=== PATIENT | male | born 1970 | race Caucasian/White ===

== ENCOUNTER 2024-09-17 07:51 | Day surgery (SDC) | payer OTHER, SELFPAY ==
[2024-09-10 12:34] VITALS: BMI 39.8
[2024-09-10 13:31] LABS: INR 1.22; PT 15.5 Sec (11.4-14.6)
[2024-09-10 13:34] LABS: ALT (SGPT) 27 U/L (0-50); AST (SGOT) 19 U/L (17-59); Albumin 4.3 g/dl (3.5-5.0); Alkaline Phosphatase 98 U/L (38-126); Blood Urea Nitrogen 34 mg/dl (9-20); Calcium 9.5 mg/dl (8.4-10.2); Carbon Dioxide 25 mmol/L (22-30); Chloride 101 mmol/L (98-107); Estimated Creatinine Clearance 113 ml/min; Glucose 233 mg/dl (70-99); Magnesium 2.1 mg/dl (1.6-2.3); Potassium 4.3 mmol/L (3.5-5.1); Sodium 140 mmol/L (135-145); Total Bilirubin 0.2 mg/dl (0.2-1.3); Total Protein 6.8 g/dl (6.3-8.2); eGFR > 60.00
[2024-09-10 13:56] LABS: % Basophils 0.5 % (0-2); % Eosinophils 3.7 % (0-6); % Immature Granulocytes 0.5 % (0-0.5); % Lymphocytes 26.6 % (20.5-51.1); % Monocytes 9.9 % (1.7-9.3); % Neutrophils 58.8 % (42.2-75.2); Absolute Basophils 0.1 10^3/uL (0-0.2); Absolute Eosinophils 0.4 10^3/uL (0-0.7); Absolute Immature Granulocytes 0.1 10^3/uL (0-0.05); Absolute Monocytes 1.1 10^3/uL (0.1-0.6); Absolute Neutrophils 6.7 10^3/uL (1.4-6.5); Hematocrit 44.7 % (39.0-52.0); Hemoglobin 14.7 g/dL (13.0-18.0); Mean Corp Hgb Conc. 32.9 g/dL (33.0-37.0); Mean Corpuscular Hgb 28.9 pg (27.0-31.0); Mean Corpuscular Volume 87.8 fL (80.0-94.0); Mean Platelet Volume 10.7 fL (7.4-10.4); Nucleated Red Blood Cells % 0 % (-); Platelet Count 237 10^3/uL (130-400); Red Blood Cell Count 5.09 10^6/uL (4.70-6.10); Red Cell Dist. Width 13.3 % (11.5-14.5); White Blood Cell Count 11.4 10^3/uL (4.8-10.8)
[2024-09-17] VITALS (10 sets, daily range): BP systolic 109–142; BP diastolic 75–93; BMI 35.6
[2024-09-17 08:43] LABS: Glucose - Point of Care 257 mg/dl (70-99)
--- NOTE | 2024-09-17 12:47 | ITS.CL.PN ---
Frame Aligner - Procedure Note
Procedure
Procedure Note:
Electrophysiology procedure report
Date: September 17, 2024
History: Patient with a tachycardia induced cardiomyopathy and persistent atrial fibrillation. He stopped his Eliquis preoperatively approximately 4 to 5 days ago instead of his Jardiance.
Procedure note:
After informed consent during which we did discuss the possibility that he may have left atrial appendage thrombus, he was sedated with general anesthesia by the anesthesiology service. Under direct ultrasound guidance 8 [place] sheath in the right
femoral vein and 7 and 10 [place] sheath in the left femoral vein to deliver a decapolar cath of the right atrium and intracardiac ultrasound to the right atrium, right ventricle and pulmonary artery. Utilizing intracardiac ultrasound image from the
pulmonary artery direct visualization of the left atrial appendage demonstrated thrombus in the distal tip of the appendage which was seen and recorded in multiple views. As such we did not proceed with transseptal puncture and sheaths and
catheters were removed. I did place the decapolar catheter into the right atrium to record rhythm which demonstrated atrial fibrillation with areas of organization although the defining rhythm of the atria was atrial fibrillation. [place] vascular
closure was placed to each femoral vein and the patient was brought out of anesthesia without complication. Intracardiac ultrasound was placed through the 10 [place] sheath to the right atrium, right ventricle and pulmonary artery. Ejection
fraction was 40 to 45% with global hypokinesis without focal regional wall motion abnormality. As above direct views of left atrial appendage from the pulmonary artery demonstrated left atrial appendage thrombus and as such we did not proceed with
left atrial access or ablation. Sheaths and catheters were removed and we will repeat ALFONSO in 6 weeks. 3D mapping was utilized to image the decapolar catheter in the right atrium as well as to make a shell of the right atrium and record the atrial
rhythm.
Plan:
Will resume oral anticoagulation this afternoon. We will repeat ALFONSO in 6 weeks to assess his thrombus and if he is without left atrial appendage thrombus we can proceed to his ablation. Obviously given his tachycardia and his cardiomyopathy we
went to expedite his procedure but we need to make sure that the left atrial appendage thrombus has resolved. We will have to have a visit with the patient either by telehealth or in person 7 to 10 days prior to procedure date to make sure he is
properly stopping his medications as instructed.
[2024-09-17 13:01] LABS: Glucose - Point of Care 232 mg/dl (70-99)
[2024-09-17] MEDS: ELIQUIS 5 MG PO (16:49)
== END 2024-09-17 17:05 | disposition home or self-care (01) ==
LOC: CATH 07:51
PROVIDERS: ATTENDING PHYSICIAN Internal Medicine Cardiovascular Disease; FAMILY PHYSICIAN Family Medicine Adult Medicine; OTHER PHYSICIAN Internal Medicine Cardiovascular Disease
DX: I48.19 Other persistent atrial fibrillation (principal); R00.2 Palpitations; R06.02 Shortness of breath; I11.0 Hypertensive heart disease with heart failure; I42.8 Other cardiomyopathies; I95.9 Hypotension, unspecified; Z79.899 Other long term (current) drug therapy; E78.5 Hyperlipidemia, unspecified; Z87.891 Personal history of nicotine dependence; E11.9 Type 2 diabetes mellitus without complications; Z79.4 Long term (current) use of insulin; I50.9 Heart failure, unspecified; E66.01 Morbid (severe) obesity due to excess calories; Z68.39 Body mass index [BMI] 39.0-39.9, adult; Z79.84 Long term (current) use of oral hypoglycemic drugs
CPT/HCPCS: 93602; C1732; C1894; C1730; C1769; 36415; 75572; 80053; 82962; 83735; 85025; 85610; 86850; 86900; 86901; 93005; C1760; Q9967

== ENCOUNTER 2024-10-30 06:56 | Day surgery (SDC) | payer OTHER, SELFPAY ==
[2024-10-30 07:54] LABS: Glucose - Point of Care 447 mg/dl (70-99)
[2024-10-30 08:17] LABS: Glucose 405 mg/dl (70-99)
== END 2024-10-30 09:50 | disposition home or self-care (01) ==
LOC: CATH 06:56
PROVIDERS: ATTENDING PHYSICIAN Internal Medicine Cardiovascular Disease; FAMILY PHYSICIAN Family Medicine Adult Medicine; OTHER PHYSICIAN Internal Medicine Cardiovascular Disease
DX: I51.3 Intracardiac thrombosis, not elsewhere classified (principal); I48.19 Other persistent atrial fibrillation; I11.0 Hypertensive heart disease with heart failure; I50.9 Heart failure, unspecified; E78.5 Hyperlipidemia, unspecified; E11.9 Type 2 diabetes mellitus without complications; E66.9 Obesity, unspecified; Z68.39 Body mass index [BMI] 39.0-39.9, adult; Z87.891 Personal history of nicotine dependence; Z79.84 Long term (current) use of oral hypoglycemic drugs; Z79.01 Long term (current) use of anticoagulants
CPT/HCPCS: 93312; 93320; 93325; 82947; 82962

== ENCOUNTER 2024-12-30 06:02 | Day surgery (SDC) | payer OTHER, SELFPAY ==
--- NOTE | 2024-12-29 12:42 | HP.FOC2 ---
Documented by User: [email or web address] Grey 12/29/24 12:51
Focused History & Physical
Chief Complaint
HPI:
Chief Complaint: Symptomatic Persistent Atrial fibrillation
HPI / Indication for Planned Procedure: 54 yo WM patient of Dr. Irizarry with symptomatic Afib h/o NELDA thrombus during aborted ablation 09/24, f/u ALFONSO 10/25 with no NELDA clot. He presents today for ablation
Relevant Past Medical History: Diabetes, Hypertension and Other (Afib, Hyperlipidemia, NICMP, NELDA thombus)
Relevant Social History: Tobacco Use
Relevant Family History: Negative
Relevant Past Surgical History: Positive for (Cataract, shoulder surgery)
Review of Systems
Review of Pertinent Systems: All Systems Negative Except for the Following Positives (fatigue and SANCHEZ)
Medication
See Medication form for detailed medications: Yes
Medication List (including Herbals & OTC):
amiodarone 200 mg tablet 200 mg PO DAILY 09/07/24
atorvastatin 40 mg tablet 40 mg PO DAILY 09/07/24
empagliflozin 10 mg tablet (Jardiance) 10 mg PO DAILY 09/07/24
furosemide 40 mg tablet 40 mg PO DAILY 09/07/24
glimepiride 4 mg tablet 4 mg PO DAILY 09/07/24
linagliptin 5 mg tablet (Tradjenta) 5 mg PO DAILY 09/07/24
lisinopril 5 mg tablet 5 mg PO DAILY 09/07/24
metformin 500 mg tablet 500 mg PO DAILY 09/07/24
spironolactone 25 mg tablet 25 mg PO DAILY 09/07/24
apixaban 5 mg tablet (Eliquis) 5 mg PO BID 09/17/24
Medications Reviewed: Yes
Allergies and Reactions
Patient has Allergies: No
Noted Allergies and Reactions:
Allergy/AdvReac Type Severity Reaction Status Date / Time
No Known Allergies Allergy Unverified 09/17/24 08:07
Diagnosis / Assessment
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
Plan / Procedure
54 yo WM symptomatic Afib h/o NELDA thrombus during aborted ablation 09/24, f/u ALFONSO 10/25 with no NELDA clot. He presents today for ablation.
Resume OAC 6 hours post procedure, continue amiodarone and metoprolol.
Anesthesia/Sedation to be done by Anesthesia Provider: Yes

Documented by User: TASHA Ramirez 12/30/24 07:15
Focused History & Physical
Medication
Medication List (including Herbals & OTC):
Home Medications
�Medication �Instructions �Recorded
amiodarone 200 mg tablet 200 mg PO DAILY 09/07/24
atorvastatin 40 mg tablet 40 mg PO DAILY 09/07/24
empagliflozin 10 mg tablet 10 mg PO DAILY 09/07/24
(Jardiance)
furosemide 40 mg tablet 40 mg PO DAILY 09/07/24
glimepiride 4 mg tablet 4 mg PO DAILY 09/07/24
linagliptin 5 mg tablet (Tradjenta) 5 mg PO DAILY 09/07/24
lisinopril 5 mg tablet 5 mg PO DAILY 09/07/24
metformin 500 mg tablet 500 mg PO DAILY 09/07/24
spironolactone 25 mg tablet 25 mg PO DAILY 09/07/24
apixaban 5 mg tablet (Eliquis) 5 mg PO BID 09/17/24
Allergies
Allergy/AdvReac Type Severity Reaction Status Date / Time
No Known Allergies Allergy Unverified 09/17/24 08:07
Pertinent Physical Exam
All Other Systems: Negative
Head/Neck: Normal
Lungs: Normal
Heart: Other (irreg irreg S1 S2 no murmurs)
Abdomen: Normal
Extremities: Normal
Neurological: Normal
[2024-12-30] VITALS (12 sets, daily range): BP systolic 109–132; BP diastolic 75–108; BMI 35.2
[2024-12-30 06:46] LABS: Glucose - Point of Care 229 mg/dl (70-99)
[2024-12-30 06:47] LABS: Hematocrit 49.8 % (39.0-52.0); Hemoglobin 16.4 g/dL (13.0-18.0); Mean Corp Hgb Conc. 32.9 g/dL (33.0-37.0); Mean Corpuscular Hgb 29.8 pg (27.0-31.0); Mean Corpuscular Volume 90.5 fL (80.0-94.0); Mean Platelet Volume 10.1 fL (7.4-10.4); Platelet Count 233 10^3/uL (130-400); Red Cell Dist. Width 13.2 % (11.5-14.5); White Blood Cell Count 11.9 10^3/uL (4.8-10.8)
[2024-12-30 07:02] LABS: ALT (SGPT) 33 U/L (0-50); AST (SGOT) 23 U/L (17-59); Albumin 4.7 g/dl (3.5-5.0); Alkaline Phosphatase 121 U/L (38-126); Blood Urea Nitrogen 29 mg/dl (9-20); Calcium 9.9 mg/dl (8.4-10.2); Carbon Dioxide 24 mmol/L (22-30); Chloride 99 mmol/L (98-107); Estimated Creatinine Clearance > 125 ml/min; Glucose 222 mg/dl (70-99); Potassium 4.6 mmol/L (3.5-5.1); Sodium 137 mmol/L (135-145); Total Bilirubin 0.4 mg/dl (0.2-1.3); Total Protein 7.6 g/dl (6.3-8.2); eGFR > 60.00
[2024-12-30 07:21] LABS: INR 1.19; PT 15.4 Sec (11.4-14.6)
[2024-12-30] MEDS: NOVOLOG vial 2 UNITS SC (07:27)
[2024-12-30 08:45] LABS: ACT-LR - POC 248 Seconds (116-155)
[2024-12-30 09:09] LABS: Glucose - Point of Care 187 mg/dl (70-99)
--- NOTE | 2024-12-30 09:19 | ITS.CL.ABL ---
Exhibition Specialist - Ablation
Ablation
Procedure Report:
ELECTROPHYSIOLOGY ABLATION STUDY
DATE:: 12/30/24 REFERRING: Dr. Burt Irizarry
INDICATION: Persistent supraventricular tachycardia in the form of atrial fibrillation. History of tachycardia induced CM
HISTORY: See H and P.
ANTIARRHYTHMIC DRUG: amiodarone
PRE-PROCEDURE ALFONSO: No thrombus at 10/30/24 ALFONSO and today on ICE prior to transseptal
PRESENTING RHYTHM: AF
'TIME-OUT': called and confirmed.
SEDATION/ANESTHESIA: provided via the anesthesia department using general anesthesia (LMA).
INTRAVENOUS/ARTERIAL ACCESS:
Right femoral venous - 8Fr
Left femoral venous - 8 Fr, 6 Fr
Ultrasound guidance for bilateral femoral vein access was utilized by me to obtain access with demonstration of normal anatomy
CHADS-VASC Score:
HAS-Bled Score
PROCEDURE:
1. A decapolar CS catheter was placed within the CS for mapping and pacing. This was also used as the reference catheter for the 3-D map.
2. The intracardiac ultrasound catheter was positioned in the RA to identify the FO for targeting of transseptal puncture, assist in identification of the pulmonary vein ostia, monitoring pre and post ablation pulmonary vein flow velocities,
monitoring for 'bubble' formation during RF application as a sign of thermal injury, and to monitor for pericardial effusion during mapping and ablation procedure. Left atrial size, LV ejection fraction, and pulmonary vein flows were monitored
pre and post ablation procedure. The other valves were inspected and found to be free of significant regurgitation or stenosis.
3. Half of the calculated heparin bolus was administered prior to the first transeptal puncture. Transseptal puncture was performed to diagnose RA and LA pressure so that safety of LA mapping and ablation could be further assessed, and to access
the left atrium and pulmonary veins for mapping and ablation. This entailed advancing an 8 Fr SL-1 sheath with dilator into the superior vena cava and withdrawing both (monitoring intracardiac ultrasound, fluoroscopy and tip pressure) with the tip
oriented toward the atrial septum. The fossa ovalis was engaged (indicated by sudden displacement of the sheath tip as well as tenting of the fossa seen on intracardiac ultrasound). Left atrial access required a pass with the [place] needle
extended. Left atrial catheter position was confirmed by pressure monitoring (RA mean pressure 8 mm Hg and LA mean presure 14 mm Hg), LA saturation ( 99 %), as well as fluoroscopy. The sheath was advanced over the dilator and positioned in the
left atrium. This procedure was repeated for the [place]ilis sheath. The remainder of the calculated heparin bolus was administered and heparin was
infused to maintain ACT at 300 -350 seconds throughout the case.
4. RA pacing was performed via the proximal decapolar poles and LA pacing was performed via the distal decapolr poles.
5. A quadrapolar catheter was first positioned at the His position for His Bundle recording which was tagged via the 3-D Navex sytem, and then passed to the RVA for RV pacing and recording.
6. The multipolar catheter and PFA catheter were placed in each of the LIPV, LSPV, RSPV and the RIPV.
7. Next, a 3-D map was created using Navex. A 3-D reconstructed CT image was compared to the 3-D Navex map to assist in anatomic interpretation, mapping and ablation. The CT image and the NavX image were fused.
8. A total of 62 lesions were given to the PV's and LA posterior wall to the floor. Isolated all 4 PV and LAPW/roof/floor
9. Normal sinus node and AV sultana function.
TOTAL FLOURO TIME: 11 minutes 123 mgy
TOTAL RF DURATION: 0 minutes
REVERSAL OF HEPARIN: 45 mg of protamine, slow IV administration. figure of eight stitch to the RFV and LFV access site
COMPLICATIONS:
None
Intracardiac US shows no pericardial effusion post ablation.
SUMMARY:
Complex left atrial mapping and ablation.
Isolation of PV's and LAPW as above
RECOMMENDATIONS:
1. Ambulate in 4 hrs
2. Resume anticoagulation
3. Discontinue amiodarone
4. Consider same day discharge
Copy to: Dr. Burt IRIZARRY
[2024-12-30 09:42] LABS: Glucose - Point of Care 270 mg/dl (70-99)
[2024-12-30] MEDS: NOVOLOG vial 4 UNITS SC (09:44)
[2024-12-30] MEDS: ANESTHETIC LOZENGE 1 LOZENGE PO (10:00)
[2024-12-30] MEDS: NOVOLOG vial 6 UNITS SC (11:40)
[2024-12-30 11:52] LABS: Glucose - Point of Care 333 mg/dl (70-99)
--- NOTE | 2024-12-30 14:29 | W.PN.UPDATE ---
Update Note
Progress Note Update
54 yo WM s/p PVI (same day). He denies cp, sob, arsen diet, voiding, amb w/o dizziness, EKG SR, R fem c/d/i no HT, soft. He will resume Eliquis tonight at home. Activity restrictions reviewed. He will f/u Dr. Irizarry in 1 mo. He is for d/c home after 2pm.
SUMMARY:
Complex left atrial mapping and ablation.
Isolation of PV's and LAPW as above
RECOMMENDATIONS:
1. Ambulate in 4 hrs
2. Resume anticoagulation
3. Discontinue amiodarone
4. Consider same day discharge
Copy to: Dr. Burt IRIZARRY
== END 2024-12-30 16:13 | disposition home or self-care (01) ==
LOC: CATH 06:02
PROVIDERS: ATTENDING PHYSICIAN Internal Medicine Cardiovascular Disease; OTHER PHYSICIAN Internal Medicine Cardiovascular Disease
DX: I48.19 Other persistent atrial fibrillation (principal); E11.9 Type 2 diabetes mellitus without complications; I10 Essential (primary) hypertension; E78.5 Hyperlipidemia, unspecified; I42.8 Other cardiomyopathies; Z79.84 Long term (current) use of oral hypoglycemic drugs; Z79.01 Long term (current) use of anticoagulants
CPT/HCPCS: C1732; C1894; C1730; C1759; 80053; 82962; 85027; 85347; 85610; 86850; 86900; 86901; 93005; 93656; 93657; C1733; C1766